=== PATIENT | male | born 1960 | race Caucasian/White ===

== ENCOUNTER 2023-06-02 14:28 | Outpatient (CLI) | payer OTHER ==
[~2023-06-02 14:28] MED LIST: LIDOcaine 1%/PF 5ML 10 MG/ML VIAL ONE; MIDAZolam 1 MG/ML 5ML VIAL ONE; albumin (Human) 5% 250ml 250 ML IV ONE; dexamethasone sod phosphate 4mg/ml inj. ONE; fentaNYL/PF 50MCG/1 ML 2ML syringe ONE; ondansetron/PF 4mg/2ml inj ONE; propofol inj 20 ML IV ONE; rocuronium 10mg/ml inj IV ONE; sugammadex 200mg/2ml injection IV ONE
== END 2023-06-02 23:59 | disposition home or self-care (01) ==
LOC: MRI 14:28
PROVIDERS: ATTEND Family Medicine
DX: S46.911A Strain of unspecified muscle, fascia and tendon at shoulder and upper arm level, right arm, initial encounter (principal); M19.011 Primary osteoarthritis, right shoulder; F07.81 Postconcussional syndrome; I10 Essential (primary) hypertension; E78.00 Pure hypercholesterolemia, unspecified; G47.00 Insomnia, unspecified; Z79.891 Long term (current) use of opiate analgesic; Z79.899 Other long term (current) drug therapy; Z98.890 Other specified postprocedural states; X58.XXXA Exposure to other specified factors, initial encounter; Y93.89 Activity, other specified; Y92.89 Other specified places as the place of occurrence of the external cause; Y99.8 Other external cause status
CPT/HCPCS: 73221; J7120; J1100; J2250; J2405; J2704; J3010; J3490; P9045